=== PATIENT | female | born 1975 | race Caucasian/White ===

== ENCOUNTER 2018-12-12 07:29 | Outpatient (CLI) | payer OTHER ==
[~2018-12-12 07:29] MED LIST: LOSARTAN-HCTZ1 EACH PO; MAXIMUM DAILY1 EACH PO; PNEU16DI2; STRESS FORMULA1 EACH PO
== END 2018-12-12 07:44 | disposition home or self-care (01) ==
LOC: MAMO-SONO 07:29
DX: N64.59 Other signs and symptoms in breast (principal); N64.89 Other specified disorders of breast; N63.10 Unspecified lump in the right breast, unspecified quadrant; N63.20 Unspecified lump in the left breast, unspecified quadrant; Z12.31 Encounter for screening mammogram for malignant neoplasm of breast

== ENCOUNTER 2018-12-22 10:58 | Outpatient (CLI) | payer OTHER | END 2018-12-22 11:02 | disposition home or self-care (01) | LOC: MAMO-SONO 10:58 | DX: N60.11 Diffuse cystic mastopathy of right breast (principal); N60.12 Diffuse cystic mastopathy of left breast ==

== ENCOUNTER 2019-03-13 08:15 | Outpatient (CLI) | payer OTHER | END 2019-03-13 08:17 | disposition home or self-care (01) | LOC: NUCLEAR 08:15 | DX: M25.50 Pain in unspecified joint (principal) | CPT/HCPCS: 78306; A9503 ==

== ENCOUNTER 2019-04-12 14:23 | Outpatient (CLI) | payer OTHER | END 2019-04-12 14:39 | disposition home or self-care (01) | LOC: RAD 14:23 | DX: M45.9 Ankylosing spondylitis of unspecified sites in spine (principal); M45.8 Ankylosing spondylitis sacral and sacrococcygeal region; M25.511 Pain in right shoulder; M47.814 Spondylosis without myelopathy or radiculopathy, thoracic region ==

== ENCOUNTER 2020-05-17 08:09 | Outpatient (CLI) | payer OTHER | END 2020-05-17 08:19 | disposition home or self-care (01) | LOC: RAD 08:09 | PROVIDERS: ATTEND Orthopaedic Surgery | DX: M25.561 Pain in right knee (principal); M25.562 Pain in left knee ==

== ENCOUNTER 2020-06-03 13:35 | Outpatient (CLI) | payer OTHER | END 2020-06-03 13:56 | disposition home or self-care (01) | LOC: MAMO-SONO 13:35 | DX: Z12.31 Encounter for screening mammogram for malignant neoplasm of breast (principal); N64.59 Other signs and symptoms in breast; E03.8 Other specified hypothyroidism ==

== ENCOUNTER → 2020-09-04 17:39 | Outpatient (CLI) | payer OTHER | END | disposition home or self-care (01) | LOC: PPH VACUNA 17:39 | DX: Z23 Encounter for immunization (principal) ==

== ENCOUNTER 2020-12-12 09:59 | Outpatient (CLI) | payer OTHER | END 2020-12-12 10:21 | disposition home or self-care (01) | LOC: MAMO-SONO 09:59 | PROVIDERS: ATTEND Internal Medicine | DX: N94.0 Mittelschmerz (principal); R10.2 Pelvic and perineal pain; N94.89 Other specified conditions associated with female genital organs and menstrual cycle ==

== ENCOUNTER 2021-02-27 06:24 | Day surgery (SDC) | payer OTHER | END 2021-02-27 11:10 | disposition home or self-care (01) | LOC: AMB-ENDOS 06:24 | PROVIDERS: ATTEND Colon & Rectal Surgery | DX: D13.1 Benign neoplasm of stomach (principal); K44.9 Diaphragmatic hernia without obstruction or gangrene; K64.0 First degree hemorrhoids; Z20.822 Contact with and (suspected) exposure to COVID-19 ==

== ENCOUNTER 2021-06-24 10:00 | Outpatient (CLI) | payer OTHER | END 2021-06-24 10:15 | disposition home or self-care (01) | LOC: PPH VACUNA 10:00 | PROVIDERS: ATTEND Emergency Medicine Pediatric Emergency Medicine | DX: Z23 Encounter for immunization (principal) ==

== ENCOUNTER 2021-08-01 08:17 | Outpatient (CLI) | payer OTHER | END 2021-08-01 08:36 | disposition home or self-care (01) | LOC: RAD 08:17 | DX: M77.31 Calcaneal spur, right foot (principal); M79.671 Pain in right foot ==

== ENCOUNTER 2021-11-13 14:29 | Outpatient (CLI) | payer OTHER | END 2021-11-13 14:41 | disposition home or self-care (01) | LOC: MAMO-SONO 14:29 | PROVIDERS: ATTEND Obstetrics & Gynecology | DX: N63 Unspecified lump in breast (principal); N64.59 Other signs and symptoms in breast; N64.9 Disorder of breast, unspecified ==

== ENCOUNTER 2022-08-30 15:07 | Outpatient (CLI) | payer OTHER | END 2022-08-30 15:15 | disposition home or self-care (01) | LOC: SONOGRAMA 15:07 | PROVIDERS: ATTEND Obstetrics & Gynecology | DX: R10.2 Pelvic and perineal pain (principal); N93.9 Abnormal uterine and vaginal bleeding, unspecified ==

== ENCOUNTER 2023-09-08 13:53 | Outpatient (CLI) | payer OTHER | END 2023-09-08 14:09 | disposition home or self-care (01) | LOC: MAMO-SONO 13:53 | PROVIDERS: ATTEND Obstetrics & Gynecology | DX: Z12.31 Encounter for screening mammogram for malignant neoplasm of breast (principal); N63.0 Unspecified lump in unspecified breast; N64.59 Other signs and symptoms in breast; N64.9 Disorder of breast, unspecified; R10.2 Pelvic and perineal pain; N94.0 Mittelschmerz; N94.89 Other specified conditions associated with female genital organs and menstrual cycle ==

== ENCOUNTER 2025-05-08 16:06 | Outpatient (CLI) | payer OTHER | END 2025-05-08 16:20 | disposition home or self-care (01) | LOC: RAD 16:06 | PROVIDERS: ATTEND Orthopaedic Surgery | DX: M25.552 Pain in left hip (principal); M25.551 Pain in right hip ==

== ENCOUNTER 2025-08-28 09:39 | Outpatient (CLI) | payer OTHER | END 2025-08-28 10:10 | disposition home or self-care (01) | LOC: RAD 09:39 | PROVIDERS: ATTEND Orthopaedic Surgery | DX: M25.562 Pain in left knee (principal); M25.552 Pain in left hip ==